=== PATIENT | female | born 1970 | race Caucasian/White ===

== ENCOUNTER 2018-09-06 13:40 | Day surgery (SDC) | payer OTHER, MEDICAID ==
[~2018-09-06 13:40] MED LIST: CLINDAMYCIN 900 MG/D5W (PMX) 50 ML IVPB; DEXAMETHASONE 4 MG/ML 5 ML INJ; LACTATED RINGER'S 1,000 ML IV*; ONDANSETRON 4 MG INJ; ROCURONIUM 50 MG INJ
[2018-09-06] MEDS ORDERED: PROPOFOL 100 ML (15:15)
[2018-09-06] MEDS ORDERED: CLINDAMYCIN 900 MG/D5W (PMX) 50 ML IVPB (15:21)
[2018-09-06] MEDS ORDERED: LIDOCAINE 2% (SDV) 5 ML INJ (15:22)
[2018-09-06 15:39] LABS: INR 0.86; PROTIME 11.8 Sec (11.9-14.9); PT RATIO 0.9
[2018-09-06 15:40] LABS: PARTIAL THROMBOPLASTIN TIME 28.9 Sec (23.0-35.0)
[2018-09-06] MEDS ORDERED: ROPIVACAINE 0.5 % 30 ML VIAL (15:43)
[2018-09-06] MEDS ORDERED: NEOSTIGMINE 3 MG/3 ML SYRINGE (17:37)
[2018-09-06] MEDS ORDERED: GLYCOPYRROLATE 0.4 MG INJ (17:37)
[2018-09-06] MEDS ORDERED: KETOROLAC 30 MG INJ IV ×2 (18:00→18:30)
[2018-09-06] MEDS ORDERED: ALBUTEROL 0.083% (NEB) 2.5 MG/3 ML AMP HHN (18:00)
[2018-09-06] MEDS ORDERED: EPHEDrine SULFATE 50 MG/5 ML SYG IV (18:00)
[2018-09-06] MEDS ORDERED: DIPHENHYDRAMINE 50 MG INJ IV (18:00)
[2018-09-06] MEDS ORDERED: MEPERIDINE 25 MG INJ IV (18:00)
[2018-09-06] MEDS ORDERED: FENTAnyl 50 MCG/ML VIAL IV ×3 (18:00)
[2018-09-06] MEDS ORDERED: LABETALOL HCL 20MG INJ IV (18:00)
[2018-09-06] MEDS ORDERED: HYDROmorphONE 1 MG/5 ML IV SYRINGE IV (18:00)
[2018-09-06] MEDS ORDERED: OXYCODONE/ACETAMINOPHEN (5/325) TAB PO ×2 (18:00)
[2018-09-06] MEDS ORDERED: hydrALAzine 20 MG INJ IV (18:00)
[2018-09-06] MEDS: HYDROmorphONE 1 MG/5 ML IV SYRINGE IV ×2 (18:11→18:36)
[2018-09-06] MEDS: ONDANSETRON 4 MG INJ IV ×2 (18:12→20:00)
[2018-09-06] MEDS: METOCLOPRAMIDE 10 MG INJ IV (18:36)
== END 2018-09-06 20:15 | disposition home or self-care (01) ==
LOC: SDS 13:40
DX: G56.02 Carpal tunnel syndrome, left upper limb (principal); S63.592D Other specified sprain of left wrist, subsequent encounter; X58.XXXD Exposure to other specified factors, subsequent encounter; M65.88 Other synovitis and tenosynovitis, other site
CPT/HCPCS: 25360; 73110-LT; 84703; 85610; 85730